=== PATIENT | female | born 1990 | race Caucasian/White ===

== ENCOUNTER 2025-02-25 07:47 | Observation (INO) ==
[2025-02-25 08:00] VITALS: BP 124/78; PULSE 82
[2025-02-25] MEDS ORDERED: OXYTOCIN 30 UNITS/NSS 30 UNITS/500 ML BAG IV PRN (08:05)
[2025-02-25] MEDS ORDERED: CALCIUM CARBONATE 500 MG CHEWABLE TAB PO PRN (08:05)
[2025-02-25] MEDS ORDERED: LIDOCAINE 1% LOCAL 20 ML VIAL INFIL PRN (08:05)
[2025-02-25] MEDS ORDERED: LACTATED RINGER'S 1,000 ML IV PRN (08:05)
[2025-02-25 08:49] LABS: Hemoglobin 11.3 g/dl (12.0-16.0); Mean Corpuscular Hemoglobin 29.4 pg (25.0-34.0); Mean Corpuscular Hgb Conc 34.2 g/dL (32.0-36.0); Mean Corpuscular Volume 85.9 fL (80.0-100.0); Mean Platelet Volume 9.9 fL (9.4-12.4); Platelet Count 275 K/uL (130-400); RDW Standard Deviation 40.4 fL (36.4-46.3); Red Blood Count 3.84 M/uL (4.20-5.40); White Blood Count 9.44 K/ul (4.8-10.8)
[2025-02-25 08:53] VITALS: RESP 18; TEMP 98.8
--- NOTE | 2025-02-25 09:13 | Obstetrical Progress Note ---
Date of Service February 25, 2025 Assessment & Plan (1) IUGR (intrauterine growth restriction) affecting care of mother: Plan: induction moved to 03/04 orders for NST/ DVP & UAD placed office will call to set up times for her appts. Admission and Anticipated Discharge Date Admission Date: February 25, 2025 Subjective Patient presents today for IOL because of IUGR at 37 0/7 weeks. IUGR diagnosis made yesterday on growth scan because she had been measuring S<D. EFW 5%/ AC <2% with normal DVP and UAD. NST was reactive as well. after reviewing ACOG guidelines management of IUGR, she does not meet criteria for delivery at 37 weeks but should be delivered between 38 0/7- 38 6/7 weeks. there are 2 openings during that time period. she chose 03/04. she will continue with monitoring per the IUGR protocol until the . Review of Systems Review of Systems: All systems reviewed & are unremarkable except as noted in HPI & below Physical Exam Constitutional: WD/WN, vitals as above Psychiatric: A+Ox3, euthymic affect Genitourinary: Manual OB Exam: + cervical dilation (closed), + cervical effacement 50% and + station (-3) OB Exam Monitor Tracing: + external FHT monitor used, + external uterine monitor used, + category I and + normal FHT variability Results & Data Vital Signs (Past 12 Hours) Vital Signs Temp Pulse Resp BP 02/25/25 08:25 98.8 F 82 18 124/78 02/25/25 07:59 82 124/78 PG Care Time/CCT Total # of Minutes Spent Total Time Spent with Patient: Total time spent is greater than 50% in coordination of care (as documented) at patient's floor/unit and/or counseling patient: Coding Level of Care Code 25438 SUB INP/OBS CARE 12/14MIN Diagnoses IUGR (intrauterine growth restriction) affecting care of mother O36.5990 Fetus number: single or unspecified fetus (1) IUGR (intrauterine growth restriction) affecting care of mother Fetus number: single or unspecified fetus
--- NOTE | 2025-02-26 16:30 | Discharge Summary ---
Date of Service February 26, 2025 Admission Exam (Per Admitting) Constitutional WD/WN, vitals as above Psychiatric A+Ox3, euthymic affect Genitourinary Manual OB Exam: + cervical dilation (closed), + cervical effacement + 50% and + station (-3) OB Exam Monitor Tracing: + external FHT monitor used, + external uterine monitor used, + category I and + normal FHT variability Discharge Data Consultations 02/25/25 08:05 Consult Anesthesiology Stat Discharge Plan Discharge Items Patient Disposition: Home - Self-Care Reason For Visit: INDUCTION Discharge Diagnosis: IUGR at 37 weeks Activity: Resume your previous activity Non-emergency contact: [employer] Call non-emergency contact if: your pain is concerning for you and your temperature is above 101 Follow-up/Referrals: Sugey Luna DO [Primary Care Provider] - Diet: Regular Addtl Attending Provider Instructions: SPECIAL CARE INSTRUCTIONS: Call Doctor if: * Regular contractions every 5 minutes or greater than contractions in one hour. * Bleeding * Water breaks or is leaking * Decreased movement * Fever >100.4 degrees F * Pain not relieved by routine measures or pain medication ordered. FOLLOW UP VISIT: Return to Labor and Delivery on for /call for appointment time . Follow-up Visit with: When: Pending Studies at Discharge: No Medications and DC Order Prescriptions: Continued Multivit/Min/Iron/Fol Ac/Pren ( Vitamin) tablet 1 tab PO DAILY Qty: 0 lansoprazole [Prevacid] 30 mg capsule,delayed release(DR/EC) 30 mg PO DAILY Qty: 30 2RF (DME) breast pump Device See Rx Instructions .ROUTE .MEDSUPPLY Qty: 1 0RF Rx Instructions: As directed montelukast 10 mg tablet 10 mg PO DAILY levocetirizine 5 mg tablet 5 mg PO DAILY esomeprazole magnesium 40 mg capsule,delayed release(DR/EC) 40 mg PO DAILY ondansetron 4 mg tablet,disintegrating 4 mg PO Q6H PRN (Reason: nausea and vomiting) Qty: 20 1RF Discharge Orders: Discharge Order (Routine); Ordered 02/25/25 Ordered By: Hien Alberts Admission Data Admit Date/Time: 02/25/25 07:47 Attending Provider: Hien Alberts Admit Provider: Hien Alberts Primary Care Provider: Sugey Luna Other Interventions: LD Outpatient Discharge Instructions Last Done: 02/25/25 08:53 Coding Level of Care Code 12315 IN/OBS DISCH 30 MIN/LESS
== END 2025-02-25 09:05 | disposition home or self-care (01) | DRG 833 ==
LOC: 4S1 07:47 → INTOOBSV 07:47

== ENCOUNTER 2025-03-03 13:39 | Inpatient (IN) ==
[2025-03-04] MEDS ORDERED: OXYTOCIN 30 UNITS/NSS 30 UNITS/500 ML BAG IV PRN ×2 (07:51→23:09)
[2025-03-04] MEDS ORDERED: LIDOCAINE 1% LOCAL 20 ML VIAL INFIL PRN (07:51)
[2025-03-04] MEDS ORDERED: CALCIUM CARBONATE 500 MG CHEWABLE TAB PO PRN (07:51)
[2025-03-04] MEDS ORDERED: ACETAMINOPHEN 325 MG TAB PO PRN (07:51)
[2025-03-04] MEDS: LACTATED RINGER'S 1,000 ML IV PRN (08:42)
--- NOTE | 2025-03-04 08:45 | History & Physical Report ---
Date of Service March 04, 2025 Assessment & Plan (1) IUGR (intrauterine growth restriction) affecting care of mother: (2) Nonimmune to hepatitis B virus: (3) Encounter for induction of labor: Plan Rh+, GBS neg, ri, FHT cat 1 Admit for iol. Plan for pit. Admission and Anticipated Discharge Date Admission Date: March 04, 2025 History of Present Illness Primary Care Provider: Sugey Luna DO Patient is a 35yo currently at 38 WGA (w FREDO 03/18/25 as determined by LMP) who is here for iol. Her previous and delivery was uncomplicated. She has no medical conditions or regular medications except for allergies. This has been complicated by IUGR. Per 02/24 office visit, EFW 5%, AC <2%. She has had regular appointments with OB. She denies fevers, chills, VORA, SOB, chest pain, leg swelling, or n/v exceeding baseline - related symptoms. Denies contractions; +FM; Denies leakage of fluid or bloody show External FHT and external uterine monitors in place Blood type: B+ Antibody screen: Neg GBS: Neg Rubella: Immune VDRL/RPR: Neg Gonorrhea: Not detected Chalmydia: Not detected HIV: Non-reactive HbSAg: Non-reactive Allergies Allergy/AdvReac Type Severity Reaction Status Date / Time albuterol Allergy Severe Hives Verified 03/04/25 08:52 ethinyl estradiol Allergy Severe other Unverified 03/03/25 15:55 norgestimate Allergy Severe other Unverified 03/03/25 15:55 Bactrim Allergy Unknown Hives Verified 04/28/18 15:17 sulfamethoxazole [Bactrim] Allergy Unknown Hives Verified 03/03/25 15:55 trimethoprim [Bactrim] Allergy Unknown Hives Verified 03/03/25 15:55 Home Medications Medication Instructions Recorded Confirmed Type Multivit/Min/Iron/Fol Ac/Pren 1 tab PO DAILY #0 tabs 04/27/18 03/03/25 History ( Vitamin) levocetirizine 5 mg tablet 5 mg PO DAILY 08/06/24 03/03/25 History montelukast 10 mg tablet 10 mg PO DAILY 08/06/24 03/03/25 History lansoprazole 30 mg capsule,delayed 30 mg PO DAILY #30 caps 08/28/24 03/03/25 Rx release (Prevacid) ondansetron 4 mg disintegrating 4 mg PO Q6H PRN nausea and 09/02/24 03/03/25 Rx tablet vomiting #20 tabs esomeprazole magnesium 40 mg 40 mg PO DAILY 12/03/24 03/03/25 History capsule,delayed release breast pump #1 ea 02/24/25 03/03/25 Rx Past Med/Surg History Problem List (Updated 03/04/25 @ 09:25 by Pro Anderson MD) Encounter for induction of labor IUGR (intrauterine growth restriction) affecting care of mother Nonimmune to hepatitis B virus Early stage of Encounter for anatomic survey Supervision of elderly multigravida Abdominal pain (Acute) Abdominal pain, vomiting, and diarrhea (Acute) Back pain (Acute) Fatigue (Acute) Lightheaded (Acute) Nausea (Acute) Nausea (Acute) Surgical History S/P tonsillectomy S/P wisdom tooth extraction Status post colposcopy Family History Other Hypertension Stroke Social History Smoking Status: Never smoker Do You Dip or Chew Tobacco: No; Hx Alcohol Use: No Hx Substance Use: No Preferred Language: Kittitian Communication Ability: Effective Machine Silver Stripper Required: No Beliefs That Will Affect Care: None marital status: Single marital status details: Lázaro (38) [phone] Current Living Situation: Spouse and Family Current Living Situation Comment: Partner, son current occupational status: employed current occupation: supply chain associate Other Information That Helps Us Care for You: No Feels Safe at Home: Yes Safety Concerns: Feels Safe At This Time Review of Systems Review of Systems: Full ROS conducted and negative except as noted in HPI. Physical Exam Physical Exam: General: Alert and oriented. No acute distress CV: Regular rate and rhythm. No murmurs. Respiratory: CTA bilaterally. No increased work of breathing. Symmetrical chest rise. Abdomen: Gravid: Soft, nontender upon palpation Pelvic: 2/50%/-[address] Anderson Lower extremities: No LE edema. No deep calf pain. Dori's negative bilaterally. Results & Data Results & Data Vital Signs (Past 12 Hours) Vital Signs Temp Pulse BP 03/04/25 07:41 83 119/79 03/04/25 07:38 36.8 C Supervising Physician Co-Signing Physician Notes Patient seen with resident agree of the above findings and plan. Will start induction with oxytocin we will plan for rupture membranes when appropriate. GBS negative. Vitals within normal limits Resident Activity Tracking Resident Involvement: Resident Care Provided Care Provided: Adult Hospital Medicine and OB Delivery (1) IUGR (intrauterine growth restriction) affecting care of mother Fetus number: single or unspecified fetus Trimester: third trimester Qualified Code(s): O36.5930 - Maternal care for other known or suspected poor growth, third trimester, not applicable or unspecified
[2025-03-04 08:52] LABS: Hematocrit (blood only) 34.8 % (37.0-47.0); Hemoglobin 11.7 g/dl (12.0-16.0); Mean Corpuscular Hemoglobin 29.3 pg (25.0-34.0); Mean Corpuscular Hgb Conc 33.6 g/dL (32.0-36.0); Mean Platelet Volume 9.8 fL (9.4-12.4); Platelet Count 300 K/uL (130-400); RDW Coefficient of Variation 13.1 % (11.5-14.5); RDW Standard Deviation 41.4 fL (36.4-46.3)
[2025-03-04] MEDS: OXYTOCIN 30 UNITS/NSS 30 UNITS/500 ML BAG IV PRN (09:07)
--- NOTE | 2025-03-04 15:10 | Labor Progress Brief Note ---
Date of Service March 04, 2025 Subjective Reason For Note: Routine Evaluation Assessment & Plan (1) Encounter for induction of labor: Plan: AROM clear, continue Pitocin per regular protocol. Category 1 tracing. Vitals within normal limits. (2) IUGR (intrauterine growth restriction) affecting care of mother: Fetus number: single or unspecified fetus Trimester: third trimester Qualified Code(s): O36.5930 - Maternal care for other known or suspected poor growth, third trimester, not applicable or unspecified Admission and Anticipated Discharge Date Admission Date: March 04, 2025 Physical Exam Genitourinary: Manual OB Exam: + cervical dilation 3 cm, + cervical effacement 50%, + station -2 and + amniotic fluid (AROM) clear OB Exam Monitor Tracing: + external FHT monitor used, + external uterine monitor used, + category I and + normal FHT variability Results & Data Vital Signs (Past 12 Hours) Vital Signs Temp Pulse BP 03/04/25 14:30 36.8 C 03/04/25 12:57 69 117/66 03/04/25 12:09 36.9 C 64 127/67 03/04/25 11:07 65 121/71 03/04/25 10:14 67 139/81 03/04/25 09:05 75 129/82 03/04/25 07:41 83 119/79 03/04/25 07:38 36.8 C Coding Level of Care Code None Diagnoses Encounter for induction of labor Z34.90 Poor growth affecting management of mother in third trimester, single or unspecified fetus O36.5930 Fetus number: single or unspecified fetus Trimester: third trimester
[2025-03-04] MEDS: BUTORPHANOL TARTRATE 1 MG/ML VIAL IV PRN (17:27)
[2025-03-04] MEDS ORDERED: NALBUPHINE HCL INJ 10 MG/ML AMP IV PRN (19:15)
[2025-03-04] MEDS ORDERED: LIDOCAINE 2% MPF LOCAL 5 ML VIAL EPI PRN (19:15)
[2025-03-04] MEDS ORDERED: NALOXONE HCL 0.4 MG/1 ML VIAL/CARP IV PRN (19:15)
[2025-03-04] MEDS ORDERED: SODIUM CHLORIDE 0.9% PF INJ 10 ML VIAL EPI PRN (19:15)
[2025-03-04] MEDS ORDERED: ONDANSETRON INJ 2 MG/ML 2 ML VIAL IV PRN (19:15)
[2025-03-04] MEDS ORDERED: BUPIVACAINE 0.25% PF 30 ML VIAL EPI PRN (19:15)
[2025-03-04] MEDS ORDERED: ePHEDrine sulfate 50 MG/ML AMP IV PRN (19:15)
[2025-03-04] MEDS ORDERED: NALOXONE HCL 1 MG in SODIUM CHLORIDE 0.9% 1,000 ML IV PRN (19:15)
[2025-03-04] MEDS ORDERED: fentaNYL citrate PF 100 MCG/2 ML VIAL EPI PRN (19:15)
[2025-03-04] MEDS ORDERED: diphenhydrAMINE 50 MG/ML VIAL IV PRN (19:15)
[2025-03-04] MEDS ORDERED: ROPIVACAINE 0.5% PF 5 MG/ML 20 ML VIAL EPI PRN (19:15)
[2025-03-04] MEDS ORDERED: fentANYL 2 MCG/ML BUPIVacaine 0.125%-NSS 100ML BAG EPI PRN (19:15)
--- NOTE | 2025-03-04 19:15 | Anesthesiology Consultation ---
Date of Service March 04, 2025 Assessment & Plan ASA ASA2 Proposed Anesthesia Anesthesia Type: Labor Epidural Risk / Benefits Reviewed With: PT / POA / Parent / Guardian, Accepts Plan and Informed Consent Obtained History Height/Weight Height: 5 ft 1 in Weight: 86.636 kg Allergies Allergy/AdvReac Type Severity Reaction Status Date / Time albuterol Allergy Severe Hives Verified 03/04/25 08:52 ethinyl estradiol Allergy Severe other Verified 03/04/25 19:01 norgestimate Allergy Severe other Verified 03/04/25 19:01 Bactrim Allergy Unknown Hives Verified 04/28/18 15:17 sulfamethoxazole [Bactrim] Allergy Unknown Hives Verified 03/03/25 15:55 trimethoprim [Bactrim] Allergy Unknown Hives Verified 03/03/25 15:55 Medications Home Medications Medication Instructions Recorded Confirmed Last Taken esomeprazole magnesium 40 mg 40 mg PO DAILY 03/04/25 03/04/25 Unknown capsule,delayed release (Nexium) famotidine 40 mg tablet (Pepcid) mg 03/04/25 Unknown vits no.124-ferrous fum 1 tab PO DAILY 03/04/25 03/04/25 03/04/25 27 mg iron-folic acid 800 mcg tablet ( Vitamin) Active Medications Generic Name Dose Route Start Last Admin Trade Name Freq PRN Reason Stop Dose Admin Butorphanol Tartrate 1 mg 03/04/25 17:11 03/04/25 17:27 Butorphanol Tartrate 1 Mg/Ml Vial IV 04/03/25 17:10 1 mg Q2HWA PRN Administration Pain Lactated Ringer's 1,000 mls @ 125 mls/hr 03/04/25 07:51 03/04/25 13:33 Lr IV 03/05/25 07:50 125 mls/hr .Q8H PRN Administration L&D Protocol Protocol Oxytocin 30 units in 500 mls @ 10 mls/hr 03/04/25 07:51 03/04/25 11:07 Pitocin 30 Units/Nss IV 03/06/25 07:50 0.6 units/hr .Q24H PRN 10 mls/hr Labor Induction/Augmentation Titration Protocol 0.6 UNITS/HR Exercise / Class Metabolic Activity II 4-5 Yardwork/Stairs/Walk up hill Past Family History Family History Other Hypertension Stroke Past Surgical History Surgical History S/P tonsillectomy S/P wisdom tooth extraction Status post colposcopy Past Anesthesia History No Hx of Anesthesia Complications and No Family Hx of Anesthesia Complications History of PONV No Hx of PONV and No Hx of Motion Sickness Social History Smoking Status: Never smoker Do You Dip or Chew Tobacco: No Hx Alcohol Use: No Hx Substance Use: No Review of Systems denies fever/cough/ colds/ chest pain/ SOB/ SHAISTA denies SHAISTA Physical Exam Vital Signs Last Vital Signs Temp 36.8 C 03/04/25 19:30 Pulse 84 03/04/25 20:49 Resp 18 03/04/25 20:30 BP 102/55 L 03/04/25 20:49 Pulse Ox 100 03/04/25 20:46 ENMT Mouth: no TMJ abnormality and no dentition abnormality Thyromental Distance: > or= 3.5 Finger Breadths Mallampati Class: II Neck neck extension not limited Respiratory normal respiratory effort; no respiratory distress Auscultation: lungs clear to auscultation bilaterally Cardiovascular Rate/Rhythm: regular rate and regular rhythm Neurologic moves all extremities Psychiatric Orientation: alert and oriented x 3 Testing Laboratory Results 03/04/25 08:02
[2025-03-04] MEDS: fentANYL 2 MCG/ML BUPIVacaine 0.125%-NSS 100ML BAG ONE (19:56)
[2025-03-04] MEDS: BUPIVACAINE 0.25% PF 30 ML VIAL ONE (20:03)
[2025-03-04] MEDS: fentaNYL citrate PF 100 MCG/2 ML VIAL ONE (20:03)
[2025-03-04] MEDS: LIDOCAINE 2%/EPINEPHRINE 1:200,000 20 ML PF ONE (20:03)
[2025-03-04] MEDS: SODIUM CHLORIDE 0.9% PF INJ 10 ML VIAL ONE (20:06)
[2025-03-04] MEDS: ePHEDrine sulfate 50 MG/ML AMP ONE (20:32)
[2025-03-04] MEDS: fentaNYL citrate PF 100 MCG/2 ML VIAL EPI STA (20:33)
[2025-03-04] MEDS: BUPIVACAINE 0.25% PF 30 ML VIAL EPI STA (20:33)
[2025-03-04] MEDS: LIDOCAINE 2%/EPINEPHRINE 1:200,000 20 ML PF EPI STA (20:34)
[2025-03-04] MEDS: SODIUM CHLORIDE 0.9% PF INJ 10 ML VIAL EPI STA (20:35)
--- NOTE | 2025-03-04 22:03 | Delivery Summary ---
Vaginal Delivery Summary Date of Service March 04, 2025 Vaginal Delivery Summary and 1st Degree LAC Patient progressed to 10 cm dilated, 100% effaced, +2 station push intact perineum with epidural anesthesia and delivered a viable male with weight and Apgars pending. Head the delivered without difficulty quickly followed by shoulders and body. There was noted to be a single loose nuchal cord which was delivered through. was noted to have good tone on delivery without spontaneous cry. After 30 seconds cord was double clamped and cut and taken to the waiting nursery staff. Cord blood obtained and attention turned to delivery of placenta which delivered intact three-vessel cord with gentle cord traction. Inspection of perineum vagina and cervix was noted to be a first-degree perineal laceration which repaired with 3-0 Vicryl and in a continuous running stitch. Needle sponge and instrument counts were correct at the completion of the case. Both mother and stable in the immediate postdelivery timeframe. No complications noted and blood loss per QBL in chart [facility] Vaginal Delivery Charge Delivery Type Details: and 1st Degree LAC
[2025-03-04] MEDS ORDERED: HYDROCORTISONE ACETATE 25 MG SUPP PR PRN (23:09)
--- NOTE | 2025-03-04 23:09 | Anesthesia Procedure Note ---
Date of Service March 04, 2025 Anesthesia Post Epidural Note Vital Signs Vital Signs: Temp Pulse Resp BP Pulse Ox 37.3 C 75 18 132/72 100 03/04/25 22:05 03/04/25 23:04 03/04/25 22:05 03/04/25 23:04 03/04/25 21:46 Notes Mental Status: alert / awake / arousable and participated in evaluation Nausea / Vomiting: adequately controlled Pain: adequately controlled Airway Patency, RR, SpO2: stable & adequate BP & HR: stable & adequate Hydration State: stable & adequate Neuraxial Anesthesia: was administered and sensory block resolved Anesthetic Complications: no major complications apparent and Pt Satisfied with anesthetic care Epidural: Removed without complications and With tip intact
[2025-03-04] MEDS: IBUPROFEN 600 MG TAB PO PRN (23:28)
[2025-03-04] MEDS: BENZOCAINE 20% SPRY 85 APPLN/85 GM CAN EXT PRN (23:28)
[2025-03-04] MEDS: DIPHTHER/TETAN/PERTUS Vaccine (Tdap, Adol/Adult) 0.5mL IM ONE (23:55)
--- NOTE | 2025-03-05 07:29 | Obstetrical Progress Note ---
Date of Service <Clara Han MD - Last Filed: 03/05/25 08:06> March 05, 2025 Assessment & Plan <Clara Han MD - Last Filed: 03/05/25 08:06> (1) care and examination: PPD1 s/p at 38wga: Stable. Rh+, gbs neg, ri, vitals & H/H noted Continue routine care, OOB and ambulation, diet as tolerated Likely DC tomorrow as delivered late last night <Pro Anderson MD - Last Filed: 03/06/25 16:00> (1) care and examination: Subjective <Clara Han MD - Last Filed: 03/05/25 08:06> Patient is a 35yo who is PPD#2 following at 38 weeks. Abd pain/cramping, well managed on analgesics Voiding w/o issue Tolerating meals Ambulating normally Bleeding slowing down Planning to breastfeed. Constitutional: no fever, no chills or no sweats Respiratory: no dyspnea Cardiovascular: no chest pain, no palpitations or no calf pain Breast: no breast pain Gastrointestinal: no nausea or no vomiting Genitourinary (female): no dysuria Neurologic: no headache(s) no changes in vision, no headaches Physical Exam <Clara Han MD - Last Filed: 03/05/25 08:06> General: Alert, oriented. No acute distress. Cardiac: Regular rate and rhythm, no murmurs, rubs, or gallops. Respiratory: Clear to auscultation bilaterally. No increased work of breathing. Symmetrical chest rise. No respiratory distress. Abdomen: Soft, nontender, nondistended. Bowel sounds present. Uterus: Uterine fundus firm, nontender, palpable at the level of the umbilicus. Lower extremities: No lower extremity edema or swelling. No deep calf pain. Results & Data <Clara Han MD - Last Filed: 03/05/25 08:06> Vital Signs (Past 12 Hours) Vital Signs Temp Pulse Pulse Resp BP BP Pulse Ox 03/05/25 05:40 36.7 C 77 18 124/86 96 03/05/25 01:10 36.9 C 79 18 131/74 98 03/05/25 00:05 18 03/05/25 00:05 83 117/62 03/04/25 23:33 77 128/65 03/04/25 23:18 74 139/81 03/04/25 23:04 18 03/04/25 23:04 75 132/72 03/04/25 22:48 82 124/60 03/04/25 22:33 37.2 C 18 03/04/25 22:33 92 H 135/60 03/04/25 22:18 81 127/68 03/04/25 22:05 37.3 C 18 03/04/25 22:04 94 H 139/80 03/04/25 21:46 82 100 03/04/25 21:42 86 90 03/04/25 21:41 86 100 03/04/25 21:37 97 H 88 L 03/04/25 21:36 97 H 99 03/04/25 21:31 90 100 03/04/25 21:30 18 03/04/25 21:30 37.0 C 18 03/04/25 21:26 88 100 03/04/25 21:21 82 100 03/04/25 21:19 88 107/60 03/04/25 21:16 88 100 03/04/25 21:11 86 99 03/04/25 21:06 86 100 03/04/25 21:03 79 102/56 L 03/04/25 21:01 73 100 03/04/25 21:00 18 03/04/25 21:00 18 03/04/25 20:56 83 100 03/04/25 20:51 82 100 03/04/25 20:49 84 102/55 L 03/04/25 20:46 85 100 03/04/25 20:41 87 100 03/04/25 20:36 98 H 100 03/04/25 20:31 77 100 03/04/25 20:30 18 03/04/25 20:30 18 03/04/25 20:26 77 100 03/04/25 20:21 76 100 03/04/25 20:19 76 122/56 L 03/04/25 20:16 71 100 03/04/25 20:11 69 100 03/04/25 20:06 103 H 100 03/04/25 20:01 100 03/04/25 20:01 100 H 03/04/25 20:01 94 H 116/58 L 03/04/25 19:58 101 H 122/62 03/04/25 19:56 93 H 100 03/04/25 19:55 83 126/61 03/04/25 19:52 99 H 115/86 03/04/25 19:51 86 100 03/04/25 19:46 79 99 03/04/25 19:41 100 H 100 03/04/25 19:39 90 87 L 03/04/25 19:36 88 99 03/04/25 19:31 83 100 03/04/25 19:30 18 03/04/25 19:30 36.8 C 18 O2 Del Method 03/05/25 05:40 Room Air 03/05/25 01:10 Room Air 03/05/25 00:05 03/05/25 00:05 03/04/25 23:33 03/04/25 23:18 03/04/25 23:04 03/04/25 23:04 03/04/25 22:48 03/04/25 22:33 03/04/25 22:33 03/04/25 22:18 03/04/25 22:05 03/04/25 22:04 03/04/25 21:46 03/04/25 21:42 03/04/25 21:41 03/04/25 21:37 03/04/25 21:36 03/04/25 21:31 03/04/25 21:30 03/04/25 21:30 03/04/25 21:26 03/04/25 21:21 03/04/25 21:19 03/04/25 21:16 03/04/25 21:11 03/04/25 21:06 03/04/25 21:03 03/04/25 21:01 03/04/25 21:00 03/04/25 21:00 03/04/25 20:56 03/04/25 20:51 03/04/25 20:49 03/04/25 20:46 03/04/25 20:41 03/04/25 20:36 03/04/25 20:31 03/04/25 20:30 03/04/25 20:30 03/04/25 20:26 03/04/25 20:21 03/04/25 20:19 03/04/25 20:16 03/04/25 20:11 03/04/25 20:06 03/04/25 20:01 03/04/25 20:01 03/04/25 20:01 03/04/25 19:58 03/04/25 19:56 03/04/25 19:55 03/04/25 19:52 03/04/25 19:51 03/04/25 19:46 03/04/25 19:41 03/04/25 19:39 03/04/25 19:36 03/04/25 19:31 03/04/25 19:30 03/04/25 19:30 Laboratory Results 03/04/25 08:02 Supervising Physician <Pro Anderson MD - Last Filed: 03/06/25 16:00> Co-Signing Physician Notes Patient seen with resident and agree with above findings and plan. Stable for discharge Resident Activity Tracking <Clara Han MD - Last Filed: 03/05/25 08:06> Resident Involvement: Resident Care Provided Care Provided: Adult Hospital Medicine and OB Delivery
[2025-03-05] MEDS: ACETAMINOPHEN 325 MG TAB PO PRN (09:20)
[2025-03-05] MEDS: DOCUSATE SODIUM 100 MG CAP PO SCH (09:20)
[2025-03-05] MEDS: PRENATAL VITAMIN 1 TAB PO SCH (09:20)
[2025-03-05] MEDS: FERROUS SULFATE 325 MG TAB PO SCH (09:20)
[2025-03-05 20:45] VITALS: PULSE 77; O2SAT 98
[2025-03-05] MEDS: bisacodyL 5 MG TABEC PO SCH (22:25)
[2025-03-05 23:29] VITALS: TEMP 98.1
[2025-03-06] MEDS ORDERED: bisacodyL 10 MG SUPP PR PRN
[2025-03-06] MEDS: bisacodyL 5 MG TABEC PO ONE (03:23)
[2025-03-06 06:31] LABS: Hematocrit (blood only) 27.7 % (37.0-47.0); Hemoglobin 9.3 g/dl (12.0-16.0)
--- NOTE | 2025-03-06 06:31 | Obstetrical Progress Note ---
Date of Service <Clara Han MD - Last Filed: 03/06/25 07:45> March 06, 2025 Assessment & Plan <Clara Han MD - Last Filed: 03/06/25 07:45> (1) care and examination: PPD2 s/p at 38wga: Stable. Rh+, gbs neg, ri, vitals & H/H noted Continue routine care, OOB and ambulation, diet as tolerated Plan for DC today <Brianna Scherer MD - Last Filed: 03/06/25 07:46> (1) care and examination: Subjective <Clara Han MD - Last Filed: 03/06/25 07:45> Patient is a 35yo who is PPD#2 following at 38 weeks. Abd pain/cramping, well managed on analgesics Voiding w/o issue Tolerating meals Ambulating normally Bleeding slowing down Planning to breastfeed. Constitutional: no fever, no chills or no sweats Respiratory: no dyspnea Cardiovascular: no chest pain, no palpitations or no calf pain Breast: no breast pain Gastrointestinal: no nausea or no vomiting Genitourinary (female): no dysuria Neurologic: no headache(s) no changes in vision, no headaches Physical Exam <Clara Han MD - Last Filed: 03/06/25 07:45> General: Alert, oriented. No acute distress. Cardiac: Regular rate and rhythm, no murmurs, rubs, or gallops. Respiratory: Clear to auscultation bilaterally. No increased work of breathing. Symmetrical chest rise. No respiratory distress. Abdomen: Soft, nontender, nondistended. Bowel sounds present. Uterus: Uterine fundus firm, nontender, palpable at the level of the umbilicus. Lower extremities: No lower extremity edema or swelling. No deep calf pain. Results & Data <Clara Han MD - Last Filed: 03/06/25 07:45> Vital Signs (Past 12 Hours) Vital Signs Temp Pulse Pulse Resp BP Pulse Ox O2 Del Method 03/05/25 23:10 36.7 C 77 18 137/82 03/05/25 19:30 36.9 C 77 18 121/82 98 Room Air Laboratory Results 03/06/25 06:03 Supervising Physician <Brianna Scherer MD - Last Filed: 03/06/25 07:46> Co-Signing Physician Notes Resident Physician Supervision Note: I interviewed and examined the patient. Discussed with Dr. De Luna and agree with findings and plan as documented in the note. Any exceptions or clarifications are listed here: [ ] Documented By: Brianna Scherer MD, FACOG Resident Activity Tracking <Clara Han MD - Last Filed: 03/06/25 07:45> Resident Involvement: Resident Care Provided Care Provided: Adult Hospital Medicine and OB Delivery
[2025-03-06 09:41] VITALS: BP 124/85; RESP 16
== END 2025-03-06 11:43 | disposition home or self-care (01) | DRG 807 ==
LOC: 4S1 03-04 07:33 → 4E2 03-05 01:08
DX: O70.0 First degree perineal laceration during delivery; Z88.2 Allergy status to sulfonamides; Z3A.38 38 weeks gestation of pregnancy; Z37.0 Single live birth; O69.81X0 Labor and delivery complicated by cord around neck, without compression, not applicable or unspecified; O36.5990 Maternal care for other known or suspected poor fetal growth, unspecified trimester, not applicable or unspecified